=== PATIENT | female | born 1945 | race Caucasian/White ===

== ENCOUNTER 2020-12-25 00:29 | Emergency (ER) | payer OTHER ==
[~2020-12-25] VITALS: Ht 157.5 cm; Wt 68.0 kg
[2020-12-25] MEDS ORDERED: ONDANSETRON 4MG ODT PO ONE (01:00)
[2020-12-25] MEDS ORDERED: ACETAMINOPHEN 500MG TABLET PO ONE (01:00)
[2020-12-25 01:03] LABS: BASOPHILS % 0.5 % (0.0-2.0); EOSINOPHILS % 1.5 % (0.0-5.0); HEMATOCRIT. 29.7 % (36.0-48.0); HEMOGLOBIN. 10.1 g/dL (12.0-16.0); LYMPHOCYTES % 28.1 % (20.0-50.0); MEAN CORPUSCULAR VOLUME 93.9 fL (81.0-99.0); MEAN PLATELET VOLUME 8.9 fl (7.4-10.4); MONOCYTES % 6.6 % (2.0-8.0); NEUTROPHILS % 63.3 % (40.0-76.0); PLATELET 148 x1000/uL (130-400); RED BLOOD CELL COUNT 3.17 mill/uL (4.2-5.4)
[2020-12-25 01:12] LABS: CHLORIDE 108 mEq/L (98-107)
[2020-12-25 03:45] VITALS: BP 133/63
== END 2020-12-25 03:55 | disposition home or self-care (01) ==
LOC: ER 00:29
DX: T50.995A Adverse effect of other drugs, medicaments and biological substances, initial encounter (principal); I10 Essential (primary) hypertension; E11.9 Type 2 diabetes mellitus without complications
CPT/HCPCS: 36415; 80053; 82962; 83690; 85025; 93005; 99284; Q0162